=== PATIENT | female | born 1990 | race Caucasian/White ===

== ENCOUNTER → 2019-10-26 | Outpatient (CLI) | payer OTHER ==
--- NOTE | 2019-10-26 16:46 | RADIOLOGY REPORT (SQ) ---
EXAM DESCRIPTION: U/S OB 14+ TRNABD 1GES W/O DOP COMPLETED DATE/TIME: 10/26/2019 4:01 pm REASON FOR STUDY: ANATOMY SCAN COMPARISON: None. TECHNIQUE: Static and Dynamic grayscale imaging performed of gravid uterus using transabdominal appr oac. Additional selected color Doppler and spectral images recorded. All stored on PACS. LIMITATIONS: Some limitations on anatomy as detailed below. FINDINGS: FETUSES SEEN:1 EGA: 18 weeks 0 days Calculated using BPD,FL,HC,AC documented on images. No discrepancy with clinica l dates. ANDERSON: 03/28/2020 EFW: 224 grams PERCENTILE: Not applicable. Fetus less than or equal to 20 weeks gestation. BETTE: 2.8 PLACENTA: Left lateral grade 0. PRESENTATION: Variable. ANATOMY: HEART RATE: 147 beats per minute. FOUR CHAMBER HEART: Visualized. THREE VESSEL CORD: Yes. CORD INSERTION: Visualized. KIDNEYS AND BLADDER: Visualized. Appear normal. STOMACH: Visualized. Appears normal. SPINE: Not well visualized. BRAIN AND LATERAL VENTRICLES: Not well visualized. OTHER: No other significant finding. MATERNAL ADNEXA: Maternal ovaries not visualized. CERVICAL LENGTH: 3.8 cm. Closed. OTHER: No other significant finding. IMPRESSION: LIVING INTRAUTERINE . ESTIMATED GESTATIONAL AGE 18 weeks 0 days. NO VISUALIZED ANOMALIES. Trimester of : Second trimester - 13 weeks 1 day to 27 weeks 6 days. TECHNICAL DOCUMENTATION: JOB ID: [id number] [employer]- All Rights Reserved Reading location - IP/workstation name: [email or web address]
== END ==
LOC: RAD 14:39
PROVIDERS: ATTEND Obstetrics & Gynecology
DX: Z34.82 Encounter for supervision of other normal pregnancy, second trimester (principal); Z3A.18 18 weeks gestation of pregnancy
CPT/HCPCS: 76805